=== PATIENT | male | born 1995 | race Caucasian/White ===

== ENCOUNTER 2016-11-13 10:56 | Emergency (ER) | payer BC, OTHER ==
[~2016-11-13] VITALS: Ht 170.1 cm
[~2016-11-13 10:56] MED LIST: ATARAX25 MG PO; CYCLOBENZAPRINE10 MG PO; FLEXERIL10 MG PO; IBUPROFEN200 MG PO; INHALER; LIDEX0.05% T; MOTRIN600 MG PO; MOTRIN800 MG PO; Motrin,Rufen800 MG PO; PREDNICOT20 MG PO; PREDNISONE20 MG PO; ZYRTEC10 M2 PO
[2016-11-13 11:07] VITALS: BP 147/65
[2016-11-13] MEDS ORDERED: Bactroban Oint22 GM T (11:13)
[2016-11-13] MEDS ORDERED: KEFLEX500 M1 PO (11:13)
== END 2016-11-13 11:29 | disposition home or self-care (01) ==
LOC: ED 10:56
DX: T25.122A Burn of first degree of left foot, initial encounter (principal); R03.0 Elevated blood-pressure reading, without diagnosis of hypertension; F17.200 Nicotine dependence, unspecified, uncomplicated; Z91.018 Allergy to other foods; X08.8XXA Exposure to other specified smoke, fire and flames, initial encounter; Y93.89 Activity, other specified; Y92.89 Other specified places as the place of occurrence of the external cause; Y99.8 Other external cause status

== ENCOUNTER 2017-05-06 17:03 | Emergency (ER) | payer BC, OTHER ==
[~2017-05-06] VITALS: Ht 170.1 cm; Wt 81.6 kg
[~2017-05-06 17:03] MED LIST changes: +Bactroban Oint22 GM T; +KEFLEX500 M1 PO
[2017-05-06 17:10] VITALS: BP 152/67
[2017-05-06 17:43] LABS: BASO % 0.2 % (0.0-1.0); EOS # 0.1 10*3/uL (0.0-0.4); EOS % 0.6 % (1.0-4.0); HEMATOCRIT 44.8 % (42.0-52.0); HEMOGLOBIN 15.4 g/dl (14.0-18.0); LYMPH # 2.9 10*3/uL (1.3-4.4); LYMPH % 21.2 % (27.0-41.0); MEAN CELL VOLUME 89.1 fl (80.0-94.0); MEAN CORPUSCULAR HGB 30.6 pg (27.0-31.0); MEAN CORPUSCULAR HGB CONC 34.4 g/dl (33.0-37.0); MEAN PLATELET VOLUME 11.8 fl (9.6-12.3); MONO # 1.1 10*3/uL (0.1-1.0); MONO % 8.2 % (3.0-9.0); NEUT # 9.6 10*3/uL (2.3-7.9); NEUT % 69.6 % (47.0-73.0); PLATELET COUNT AUTOMATED 213 10*3/uL (130-400); RED BLOOD COUNT 5.03 10*6/uL (4.50-5.90); RED CELL DISTRI WIDTH 12.1 % (0-14.5); WHITE BLOOD COUNT 13.9 10*3/uL (4.8-10.8)
[2017-05-06 17:57] LABS: ALBUMIN 4.3 gm/dl (3.1-4.5); ALKALINE PHOSPHATASE 86 U/L (45-117); BUN 13 mg/dl (7-24); CHLORIDE 102 mmol/L (98-107); CREATININE 0.87 mg/dL (0.70-1.30); POTASSIUM 3.7 mmol/L (3.5-5.1); SGOT/AST 18 IU/L (3-35); SGPT/ALT 39 U/L (12-78); SODIUM 138 mmol/L (136-145); TOTAL PROTEIN 8.1 gm/dL (6.4-8.2)
[2017-05-06 17:59] LABS: BILIRUBIN NEGATIVE (NEGATIVE); BLOOD 2+ (NEGATIVE); CLARITY SL CLOUDY (CLEAR); COLOR YELLOW (YELLOW); GLUCOSE NEGATIVE (NEGATIVE); KETONE 1+ (NEGATIVE); LEUKO ESTERASE NEGATIVE (NEGATIVE); NITRITE NEGATIVE (NEGATIVE); PH 5.5 (5.0-9.0); SPECIFIC GRAVITY >= 1.030 (1.005-1.030)
[2017-05-06 18:06] LABS: BACTERIA TRACE; EPITHELIAL CELLS 0-2; MUCOUS 1+; WBC 0-2 wbc/hpf (0-5)
== END 2017-05-06 18:24 | disposition home or self-care (01) ==
LOC: ED 17:03
PROVIDERS: Nurse Practitioner Family
DX: R31.9 Hematuria, unspecified (principal); R03.0 Elevated blood-pressure reading, without diagnosis of hypertension; F17.200 Nicotine dependence, unspecified, uncomplicated; Z87.01 Personal history of pneumonia (recurrent); Z79.899 Other long term (current) drug therapy; Z91.018 Allergy to other foods

== ENCOUNTER → 2019-09-21 | Emergency (ER) | payer SELFPAY ==
[~2019-09-21] VITALS: Ht 170.1 cm; Wt 90.7 kg
[~2019-09-21] MED LIST changes: +PREDNISONE50 MG PO
[2019-09-21 11:08] VITALS: BP 112/59
== END ==
LOC: ED 11:03
DX: L25.9 Unspecified contact dermatitis, unspecified cause (principal)

== ENCOUNTER 2020-11-11 17:21 | Emergency (ER) | payer OTHER, MEDICAID | END 2020-11-11 19:19 | disposition left against medical advice (07) | LOC: ED 17:21 | DX: L23.7 Allergic contact dermatitis due to plants, except food (principal); Z53.21 Procedure and treatment not carried out due to patient leaving prior to being seen by health care provider ==

== ENCOUNTER 2020-11-12 18:47 | Emergency (ER) | payer OTHER ==
[2020-11-12 19:14] VITALS: BP 115/74
== END 2020-11-12 19:28 | disposition home or self-care (01) ==
LOC: ED 18:47
DX: L23.7 Allergic contact dermatitis due to plants, except food (principal)

== ENCOUNTER 2021-09-30 22:34 | Emergency (ER) | payer OTHER ==
[2021-09-30 22:58] VITALS: BP 148/83
== END 2021-10-01 01:08 | disposition home or self-care (01) ==
LOC: ED 22:34
DX: S66.812A Strain of other specified muscles, fascia and tendons at wrist and hand level, left hand, initial encounter (principal); F17.200 Nicotine dependence, unspecified, uncomplicated; V89.2XXA Person injured in unspecified motor-vehicle accident, traffic, initial encounter; Y93.89 Activity, other specified; Y92.89 Other specified places as the place of occurrence of the external cause; Y99.8 Other external cause status

== ENCOUNTER 2022-05-20 21:04 | Emergency (ER) | payer MEDICAID ==
[~2022-05-20] VITALS: Ht 170.1 cm; Wt 79.4 kg
[2022-05-20 21:23] VITALS: BP 126/76
== END 2022-05-20 22:14 | disposition home or self-care (01) ==
LOC: ED 21:04
DX: S50.02XA Contusion of left elbow, initial encounter (principal); F17.200 Nicotine dependence, unspecified, uncomplicated; W18.39XA Other fall on same level, initial encounter; Y93.89 Activity, other specified; Y92.89 Other specified places as the place of occurrence of the external cause; Y99.8 Other external cause status